=== PATIENT | female | born 1990 | race Caucasian/White ===

== ENCOUNTER → 2016-06-22 | Outpatient (CLI) | payer BC, OTHER ==
--- NOTE | 2016-06-22 13:33 | REP ---
Obstetric sonography: History: Supervision of for anatomy. Findings: Scanning through the gravid uterus demonstrates a viable single intrauterine gestation in a variable lie. motion is observed and heart rate is recorded at 150 beats per minute. A posterior grade 0 placenta is seen without evidence of previa. Amniotic fluid is subjectively normal. Close cervical length is measured transabdominally at 4.6 cm. No extrauterine abnormalities observed. No anomaly is seen. nose and lips are seen but facial profile and left and right ventricular cardiac outflow tract views are not well seen due to position. The following additional anatomic structures are identified and felt to be sonographically unremarkable: cranium, choroid plexus, cavum, cerebellum and posterior fossa, lungs, four-chamber heart, diaphragm, left-sided stomach, abdominal wall cord insertion, three-vessel umbilical cord, kidneys and bladder, spine, upper and lower extremities. Biometry chart: BPD 5.1 cm = 21 weeks 4 days Head circumference 19.0 cm = 21 weeks 2 days Abdominal circumference 16.8 cm = 21 weeks 6 days Femur length 3.5 cm = 21 weeks 0 days Humeral length 3.5 cm = 22 weeks 1 day Cerebellar diameter 2.3 cm = 21 weeks 2 days HC/AC ratio normal 1.13 cephalic index normal 0.75. Impression: Viable single intrauterine gestation at 21 weeks 1 day by today's composite criteria. ISAAC by today's sonography November 01, 2016. Facial profile and left and right ventricular outflow tract views are less than optimally seen. anatomic survey is otherwise complete. Signed by Cas Mathis MD 06/22/2016 03:16 P
== END ==
LOC: M SMT 08:53
PROVIDERS: ATTEND Advanced Practice Midwife
DX: Z34.82 Encounter for supervision of other normal pregnancy, second trimester (principal)

== ENCOUNTER → 2016-07-14 | Outpatient (REF) | payer OTHER | LOC: M LAB REF 15:11 | PROVIDERS: ATTEND Physician Assistant | DX: J06.9 Acute upper respiratory infection, unspecified (principal) ==

== ENCOUNTER → 2016-07-15 | Outpatient (CLI) | payer BC, OTHER ==
--- NOTE | 2016-07-15 10:21 | REP ---
Clinical: Anatomical evaluation. Comparison: 06/22/2016 . Findings: Examination demonstrates a single live intrauterine in cephalic presentation. motion is identified by technologist. Placenta is noted posteriorly and grade zero without evidence for placenta previa or abruption. Amniotic fluid volume is normal. Cervix measures 4.7 cm in length and appears closed. No evidence for nuchal cord. Gestational age by current measurements 24 weeks 4 days with ISAAC 10/31/2016 . FHR equals 157 beats per minute. Estimated weight 746 grams ( 58th percentile). Anatomical assessment demonstrates normal structures including cranium, choroid plexus, cavum, cerebellum/posterior fossa, facial features, lungs, four-chamber heart/ventricular outflow tracts, diaphragm, stomach, three-vessel cord, kidneys/bladder, spine, and extremities. Impression: Single live intrauterine in cephalic presentation demonstrating appropriate growth. In conjunction with prior examination anatomical assessment is complete and normal. Signed by Andrae Cabrera MD 07/15/2016 10:13 A
== END ==
LOC: M SMT 08:57
PROVIDERS: ATTEND Advanced Practice Midwife
DX: Z34.02 Encounter for supervision of normal first pregnancy, second trimester (principal)

== ENCOUNTER → 2016-07-30 | Outpatient (CLI) | payer BC, OTHER ==
[2016-07-30 13:05] LABS: MEAN CORPUSCULAR HEMOGLOBIN 34.3 pg (27.0-33.0); MEAN CORPUSCULAR HGB CONC 34.8 g/dl (32.0-36.5); MEAN CORPUSCULAR VOLUME 98.3 fl (80.0-96.0); RED CELL DISTRIBUTION WIDTH 13.1 % (11.5-14.5); WHITE BLOOD COUNT 11.2 K/mm3 (4.0-10.0)
== END ==
LOC: M LAB 11:28
PROVIDERS: ATTEND Obstetrics & Gynecology
DX: Z34.82 Encounter for supervision of other normal pregnancy, second trimester (principal)

== ENCOUNTER → 2016-10-07 | Outpatient (CLI) | payer BC, OTHER | LOC: M SMT 10:02 | PROVIDERS: ATTEND Advanced Practice Midwife | DX: Z34.03 Encounter for supervision of normal first pregnancy, third trimester (principal) ==

== ENCOUNTER 2016-11-07 12:40 | Inpatient (IN) | payer BC, OTHER ==
[2016-11-07] VITALS (33 sets, daily range): BP systolic 87–150; BP diastolic 50–92
[~2016-11-07] VITALS: Ht 157.5 cm; Wt 72.0 kg
[2016-11-07] MEDS ORDERED: PRENTAB9 PO (12:53)
[2016-11-07 15:22] LABS: MEAN CORPUSCULAR HEMOGLOBIN 34.4 pg (27.0-33.0); MEAN CORPUSCULAR HGB CONC 35.3 g/dl (32.0-36.5); MEAN CORPUSCULAR VOLUME 97.4 fl (80.0-96.0); RED CELL DISTRIBUTION WIDTH 13.3 % (11.5-14.5); WHITE BLOOD COUNT 14.4 K/mm3 (4.0-10.0)
[2016-11-07] MEDS ORDERED: FENTANYL 2MCG/ML ROPIVACAINE 0.2% IN 0.9% NACL 200ML IVBAG As Ordered ONE (18:29)
[2016-11-07] MEDS ORDERED: OXYTOCIN DRIP 30 UNITS in APPROPRIATE DILUENT 1 EA IV SCH (18:45)
[2016-11-07] MEDS ORDERED: LR 1,000 ML IV SCH (19:00)
[2016-11-07] MEDS ORDERED: NALOXONE INJ 0.4 MG/1 ML VIAL (J2310) IV PRN (19:45)
[2016-11-07] MEDS ORDERED: EPIDURAL COMMENT XX SCH (19:45)
[2016-11-07] MEDS ORDERED: LACTATED RINGER'S 1000 ML IV PRN (19:45)
[2016-11-07] MEDS ORDERED: REFRIGERATOR IV KEYS XX PRN (19:45)
[2016-11-07] MEDS ORDERED: FENTANYL/ROPIVACAINE/NACL BAG 200 ML EPIDURAL SCH (19:45)
[2016-11-07] MEDS ORDERED: EPIDURAL/PCA KEYS XX PRN (19:45)
[2016-11-07] MEDS ORDERED: ONDANSETRON 4MG/2ML VIAL (J2405) IV PRN (19:45)
[2016-11-07] MEDS ORDERED: ePHEDrine SULFATE 25 MG/5 ML(5MG/ML) SYRINGE IV PRN (19:45)
[2016-11-07] MEDS ORDERED: diphenhydrAMINE INJ 50MG/ML VIAL (J1200) IV PRN (19:45)
[2016-11-08] VITALS (19 sets, daily range): BP systolic 95–122; BP diastolic 50–70
[2016-11-08] MEDS ORDERED: ceFAZolin 2 GM/D5W 50 ML IV BAG (J0690) As Ordered ONE (07:52)
[2016-11-08] MEDS ORDERED: BICITRA 30ML SOLN UDC As Ordered ONE (07:53)
[2016-11-08] MEDS ORDERED: BICITRA 30ML SOLN UDC PO ONE (08:00)
[2016-11-08] MEDS ORDERED: OXYTOCIN INJ 10 UNITS/ML VIAL (J2590) As Ordered ONE (08:10)
[2016-11-08] MEDS ORDERED: LIDOCAINE 2% W/EPIN INJ 20ML **PRES FREE As Ordered ONE (08:28)
[2016-11-08] MEDS ORDERED: SODIUM BICARBONATE 8.4% INJ 50MEQ 50 ML VIAL As Ordered ONE (08:29)
[2016-11-08] MEDS ORDERED: ONDANSETRON 4MG/2ML VIAL (J2405) As Ordered ONE (08:32)
[2016-11-08] MEDS ORDERED: KETOROLAC 60 MG/2 ML VIAL (J1885) As Ordered ONE (08:32)
[2016-11-08] MEDS ORDERED: MORPHINE PRES-FREE INJ 10 MG/10 ML VIAL (J2274) As Ordered ONE (08:54)
[2016-11-08] MEDS ORDERED: NALBUPHINE HCL 10 MG/ML AMP (J2300) IV PRN (08:59)
[2016-11-08] MEDS ORDERED: METOCLOPRAMIDE INJ 10MG/2ML VIAL (J2765) IV PRN ×2 (08:59→09:45)
[2016-11-08] MEDS ORDERED: ONDANSETRON 4MG/2ML VIAL (J2405) IV PRN ×3 (08:59→09:45)
[2016-11-08] MEDS ORDERED: NALOXONE INJ 0.4 MG/1 ML VIAL (J2310) IV PRN ×2 (08:59)
[2016-11-08] MEDS ORDERED: LR 1,000 ML IV SCH ×2 (09:33→09:45)
[2016-11-08] MEDS ORDERED: RHOGAM 300 MCG (1500 IU) INJ (J2790) IM SCH (09:45)
[2016-11-08] MEDS ORDERED: fentaNYL 100 MCG/2 ML INJECTION (J3010) IV PRN (09:45)
[2016-11-08] MEDS ORDERED: DOCUSATE SODIUM 100 MG CAP PO PRN (09:45)
[2016-11-08] MEDS ORDERED: MEPERIDINE INJ 25 MG/ML VIAL (J2175) IV PRN (09:45)
[2016-11-08] MEDS ORDERED: PERCOCET 5MG/325MG TAB PO PRN (09:45)
[2016-11-08] MEDS ORDERED: OXYTOCIN DRIP 30 UNITS in APPROPRIATE DILUENT 1 EA IV ONE (09:45)
[2016-11-08] MEDS ORDERED: MEASLES,MUMPS,RUBELLA VACCINE INJ (MMR-II) (90707) SC SCH (09:45)
[2016-11-08] MEDS: PRENATAL VITAMIN TAB PO SCH (14:10)
[2016-11-08] MEDS: KETOROLAC 30 MG/ML VIAL (J1885) IV SCH ×2 (15:01→20:50)
[2016-11-09 02:53] VITALS: BP 103/53
[2016-11-09] MEDS: KETOROLAC 30 MG/ML VIAL (J1885) IV SCH (03:03)
[2016-11-09 06:00] VITALS: BP 95/51
[2016-11-09 07:47] LABS: MEAN CORPUSCULAR HEMOGLOBIN 34.9 pg (27.0-33.0); MEAN CORPUSCULAR HGB CONC 34.9 g/dl (32.0-36.5); MEAN CORPUSCULAR VOLUME 99.8 fl (80.0-96.0); RED CELL DISTRIBUTION WIDTH 13.4 % (11.5-14.5); WHITE BLOOD COUNT 16.1 K/mm3 (4.0-10.0)
[2016-11-09] MEDS: PRENATAL VITAMIN TAB PO SCH (09:00)
[2016-11-09] MEDS: IBUPROFEN 800 MG TAB PO SCH ×2 (09:00→16:14)
[2016-11-09] MEDS: PERCOCET 5MG/325MG TAB PO PRN ×4 (09:40→21:09)
[2016-11-09 10:00] VITALS: BP 110/61
[2016-11-09 14:00] VITALS: BP 109/62
[2016-11-09 17:55] VITALS: BP 108/61
[2016-11-09 22:24] VITALS: BP 110/59
[2016-11-10] MEDS: PERCOCET 5MG/325MG TAB PO PRN ×3 (01:09→10:54)
[2016-11-10] MEDS: IBUPROFEN 800 MG TAB PO SCH ×2 (01:10→08:35)
[2016-11-10 06:27] VITALS: BP 114/66
[2016-11-10] MEDS ORDERED: IBUP80TA PO (07:15)
[2016-11-10] MEDS ORDERED: PERCOCET PO (07:15)
[2016-11-10] MEDS ORDERED: MOM 30ML SUSPENSION UDC PO ONE (07:30)
[2016-11-10] MEDS: PRENATAL VITAMIN TAB PO SCH (08:35)
== END 2016-11-10 12:15 | disposition home or self-care (01) | DRG 540 ==
LOC: M LDO 12:40 → M LDI 13:27 → M OBS 11-08 12:59
PROVIDERS: ADMIT Specialist; ATTEND Specialist
PROC: 10D00Z1 Extraction of Products of Conception, Low, Open Approach (ICD-10-PCS; principal; 2016-11-08 08:40)
DX: O48.0 Post-term pregnancy (principal); E73.9 Lactose intolerance, unspecified; Z37.0 Single live birth; Z3A.40 40 weeks gestation of pregnancy; O32.4XX0 Maternal care for high head at term, not applicable or unspecified; O99.284 Endocrine, nutritional and metabolic diseases complicating childbirth

== ENCOUNTER → 2017-05-04 | Outpatient (REF) | payer OTHER ==
[~2017-05-04] MED LIST: IBUP80TA PO; PERCOCET PO; PRENTAB9 PO
== END ==
LOC: M LAB REF 16:35
PROVIDERS: ATTEND Physician Assistant
DX: J02.9 Acute pharyngitis, unspecified (principal)

== ENCOUNTER → 2017-06-21 | Outpatient (REF) | payer OTHER | LOC: M LAB REF 17:26 | DX: R30.0 Dysuria (principal) ==

== ENCOUNTER → 2017-10-22 | Outpatient (REF) | payer OTHER | LOC: M LAB REF 15:09 | DX: Z12.4 Encounter for screening for malignant neoplasm of cervix (principal) ==

== ENCOUNTER → 2018-03-22 | Outpatient (REF) | payer OTHER ==
[2018-03-22 20:02] LABS: FREE T4 1.14 NG/DL (0.76-1.46)
[2018-03-22 20:04] LABS: TOTAL 25(OH) VITAMIN D 32.5 NG/ML (30.0-100.0)
== END ==
LOC: M SFHCADAM 15:08
DX: R51 Headache (principal); E55.9 Vitamin D deficiency, unspecified

== ENCOUNTER → 2018-03-29 | Outpatient (CLI) | payer BC, OTHER | LOC: M RAD 07:21 | DX: R19.06 Epigastric swelling, mass or lump (principal) | CPT/HCPCS: 76705 ==

== ENCOUNTER → 2018-06-16 | Outpatient (REF) | payer OTHER | LOC: M LAB REF 17:28 | PROVIDERS: ATTEND Surgery | DX: D17.1 Benign lipomatous neoplasm of skin and subcutaneous tissue of trunk (principal) ==

== ENCOUNTER → 2018-07-14 | Outpatient (CLI) | payer OTHER | LOC: M WUC 11:48 | PROVIDERS: ATTEND Internal Medicine Gastroenterology | DX: R11.10 Vomiting, unspecified (principal); Z53.8 Procedure and treatment not carried out for other reasons ==

== ENCOUNTER → 2018-07-19 | Outpatient (CLI) | payer BC, OTHER ==
[2018-07-19 09:15] LABS: BASO # 0.1 10^3/uL (0.0-0.2); BASO % 0.9 % (0.0-1.0); EOS # 0.1 10^3/uL (0.0-0.50); EOS % 1.3 % (0.0-3.0); HEMATOCRIT 41.9 % (36.0-47.0); HEMOGLOBIN 14.2 g/dl (12.0-15.5); LYMPH # 1.5 10^3/uL (1.5-6.5); LYMPH % 27.1 % (24.0-44.0); MEAN CORPUSCULAR HEMOGLOBIN 32.6 pg (27.0-33.0); MEAN CORPUSCULAR HGB CONC 33.9 g/dl (32.0-36.5); MEAN CORPUSCULAR VOLUME 96.3 fl (80.0-96.0); MONO # 0.4 10^3/uL (0.0-0.8); NEUTROPHILS # 3.6 10^3/uL (1.8-7.7); NEUTROPHILS % 63.3 % (36.0-66.0); PLATELET COUNT, AUTOMATED 213 10^3/uL (150-450); RED BLOOD COUNT 4.35 10^6/uL (4.00-5.40); WHITE BLOOD COUNT 5.6 10^3/uL (4.0-10.0)
[2018-07-19 09:35] LABS: IRON (FE) 53 UG/DL (50-170); PERCENT SATURATION 15.5 % (13.2-45.0); TOTAL IRON BINDING CAPACITY 342 UG/DL (250-450)
[2018-07-19 09:48] LABS: H PYLORI QUALITATIVE IgG NEGATIVE (NEGATIVE)
[2018-07-21 08:33] LABS: IGASUB3 33.4 mg/dL (13.4-97.9); IgA SERUM (part of Subclasses) 155 mg/dL (87-352); TISSUE TRANSGLUTAMINASE IgA <2 U/mL (0-3)
== END ==
LOC: M LAB 08:14
PROVIDERS: ATTEND Nurse Practitioner Acute Care
DX: R11.10 Vomiting, unspecified (principal)

== ENCOUNTER → 2018-12-24 | Outpatient (REF) | payer OTHER, BC | LOC: M LAB REF 09:09 | PROVIDERS: ATTEND Physician Assistant | DX: N39.0 Urinary tract infection, site not specified (principal) ==

== ENCOUNTER → 2019-02-23 | Outpatient (REF) | payer OTHER, BC | LOC: M LAB REF 16:05 | PROVIDERS: ATTEND Physician Assistant | DX: N39.0 Urinary tract infection, site not specified (principal) ==

== ENCOUNTER → 2019-09-15 | Outpatient (REF) | payer OTHER | LOC: M WUC 12:06 | PROVIDERS: ATTEND Nurse Practitioner Family | DX: R30.0 Dysuria (principal) ==

== ENCOUNTER → 2019-10-05 | Outpatient (REF) | payer OTHER ==
[2019-10-05 22:53] LABS: CHLAMYDIA DNA AMPLIFICATION NEGATIVE (NEGATIVE); GC DNA AMPLIFICATION NEGATIVE (NEGATIVE)
== END ==
LOC: M SFHCWAGY 17:14
PROVIDERS: ATTEND Advanced Practice Midwife
DX: Z11.3 Encounter for screening for infections with a predominantly sexual mode of transmission (principal)

== ENCOUNTER → 2020-02-02 | Outpatient (CLI) | payer BC ==
--- NOTE | 2020-02-23 14:58 | REP ---
COMPLETE OBSTETRICAL ULTRASOUND CLINICAL: Anatomical assessment. TECHNIQUE: Transabdominal obstetrical ultrasound with color Doppler evaluation. FINDINGS: Ultrasound examination demonstrates a single live intrauterine in cephalic presentation. motion was identified by the technologist. Placenta is noted posteriorly and grade 1 without evidence for placenta previa or abruption. Amniotic fluid volume is normal. Cervix measures 4 cm in length and appears closed. No evidence for nuchal cord. Gestational age by last menstrual period (LMP) 19 weeks 0 days with estimated date of delivery 06/28/2020. Gestational age by current measurements 18 weeks 5 days with estimated date of delivery 06/30/2020. heart rate (FHR) 147 beats per minute. MEASUREMENTS: BPD 4.3 cm 18 weeks 6 days HC 15.7 cm 18 weeks 4 days AC 13.4 cm 18 weeks 6 days FL 2.7 cm 18 weeks 3 days HL 2.7 cm 18 weeks 6 days HC/AC ratio 1.17 Estimated weight 250 grams (27th percentile). Anatomical assessment demonstrates normal cranium, choroid plexus, cerebellum/posterior fossa, facial features, four chamber heart/ventricular outflow tracts, diaphragm, stomach, kidneys/bladder, spine, extremities, three- vessel cord/cord insertion. IMPRESSION: Single live intrauterine in cephalic presentation demonstrating appropriate estimated weight and growth. Anatomical assessment is complete and normal. No gross abnormalities are identified. MTDD
== END ==
LOC: M WHC 15:26
PROVIDERS: ATTEND Advanced Practice Midwife
DX: Z36.89 Encounter for other specified antenatal screening (principal); Z3A.18 18 weeks gestation of pregnancy

== ENCOUNTER → 2020-03-26 | Outpatient (REF) | payer OTHER ==
[2020-03-26 18:13] LABS: HEMOGLOBIN 13.2 g/dl (12.0-15.5); MEAN CORPUSCULAR HEMOGLOBIN 32.8 pg (27.0-33.0); MEAN CORPUSCULAR HGB CONC 32.2 g/dl (32.0-36.5); MEAN CORPUSCULAR VOLUME 101.7 fl (80.0-96.0); PLATELET COUNT, AUTOMATED 213 10^3/uL (150-450); RED BLOOD COUNT 4.03 10^6/uL (4.00-5.40); WHITE BLOOD COUNT 10.1 10^3/uL (4.0-10.0)
== END ==
LOC: M PLALAB 11:59
PROVIDERS: ATTEND Advanced Practice Midwife
DX: Z34.90 Encounter for supervision of normal pregnancy, unspecified, unspecified trimester (principal); Z3A.00 Weeks of gestation of pregnancy not specified

== ENCOUNTER → 2020-05-29 | Outpatient (REF) | payer OTHER | LOC: M SFHCWAGY 13:01 | PROVIDERS: ATTEND Specialist | DX: Z34.83 Encounter for supervision of other normal pregnancy, third trimester (principal); Z3A.35 35 weeks gestation of pregnancy ==

== ENCOUNTER → 2020-06-16 | Outpatient (CLI) | payer BC, OTHER ==
[~2020-06-16] MED LIST changes: +OXYC1TAB23 PO
== END ==
LOC: M LABSMTC 08:29
PROVIDERS: ATTEND Anesthesiology
DX: Z01.812 Encounter for preprocedural laboratory examination (principal); Z20.822 Contact with and (suspected) exposure to COVID-19

== ENCOUNTER 2020-06-21 05:26 | Inpatient (IN) | payer BC, OTHER ==
[2020-06-21] VITALS (9 sets, daily range): BP systolic 92–133; BP diastolic 51–75
[~2020-06-21] VITALS: Ht 157.5 cm; Wt 75.9 kg
[~2020-06-21 05:26] MED LIST changes: -OXYC1TAB23 PO
[2020-06-21] MEDS ORDERED: LR 1,000 ML IV SCH ×3 (06:15→10:00)
[2020-06-21] MEDS ORDERED: BICITRA 30ML SOLN UDC PO ONE (06:15)
[2020-06-21] MEDS ORDERED: ceFAZolin SOD 2 GM in IV 1 EA IV ONE (06:15)
[2020-06-21] MEDS ORDERED: LR 800 ML IV ONE (06:15)
[2020-06-21 06:27] LABS: HEMATOCRIT 40.7 % (36.0-47.0); HEMOGLOBIN 13.6 g/dl (12.0-15.5); MEAN CORPUSCULAR HEMOGLOBIN 33.2 pg (27.0-33.0); MEAN CORPUSCULAR HGB CONC 33.4 g/dl (32.0-36.5); MEAN CORPUSCULAR VOLUME 99.3 fl (80.0-96.0); PLATELET COUNT, AUTOMATED 175 10^3/uL (150-450); WHITE BLOOD COUNT 9.9 10^3/uL (4.0-10.0)
[2020-06-21] MEDS ORDERED: dexameTHASONE 4 MG/ML 1ML VIAL (J1100 PER 1MG) As Ordered ONE (07:12)
[2020-06-21] MEDS ORDERED: OXYTOCIN INJ 10 UNITS/ML VIAL (J2590) As Ordered ONE (07:12)
[2020-06-21] MEDS ORDERED: ONDANSETRON 4MG/2ML VIAL As Ordered ONE ×2 (07:12→09:48)
[2020-06-21] MEDS ORDERED: KETOROLAC 60MG 2ML VIAL As Ordered ONE (07:12)
[2020-06-21] MEDS ORDERED: MORPHINE PRES-FREE INJ 10 MG/10 ML VIAL (J2274) As Ordered ONE (07:13)
[2020-06-21] MEDS ORDERED: fentaNYL 100 MCG/2 ML INJECTION (J3010) As Ordered ONE (07:13)
[2020-06-21] MEDS ORDERED: ePHEDrine SULFATE 25 MG/5 ML(5MG/ML) SYRINGE As Ordered ONE ×2 (07:52→07:53)
[2020-06-21] MEDS ORDERED: OXYTOCIN DRIP 30 UNITS in IV 1 EA IV SCH (08:35)
[2020-06-21] MEDS ORDERED: MEASLES,MUMPS,RUBELLA VACCINE INJ (MMR-II) (90707) SC SCH (08:45)
[2020-06-21] MEDS ORDERED: ONDANSETRON 4MG/2ML VIAL IV PRN ×3 (08:45→10:00)
[2020-06-21] MEDS ORDERED: RHOGAM 300 MCG (1500 IU) INJ (J2790) IM SCH (08:45)
[2020-06-21] MEDS ORDERED: PERCOCET 5MG/325MG TAB PO PRN (08:45)
--- NOTE | 2020-06-21 08:48 | ROOPDOC ---
[facility] Report Of Operation Report of Operation DATE OF PROCEDURE: 06/21/20 Report of operation Preoperative diagnosis: 39 0/7 weeks, prior , undesired fertility Postoperative diagnosis: same Procedure: Repeat low transverse section and bilateral tubal ligation. Surgeon: Gertrudis Leyva M.D. Asst.: Jojo Alexander CNM EBL: 600 ml. Urine output: 75 mL's. Findings: 8 lbs. 4 oz. male , Score 8 and 8, normal uterus, fallopian tubes, ovaries. Operative summary: Patient taken to the operating room where spinal anesthesia was induced. She was prepped draped in a sterile fashion in the supine position. A Cedillo catheter was placed. A Pfannenstiel skin incision was made with scalpel. Fascia was incised and extended bilaterally. The peritoneal cavity was entered. A Mobius retractor was placed. A bladder flap was created. A curvilinear incision was made in lower uterine segment until Clear fluid was noted. The incision was extended manually. The infant was delivered from the vertex position without difficulty. Cord was double clamped and cut. The infant was handed to the awaiting nurses. . The placenta was expressed. Uterus was closed with O-Vicryl in a running locked fashion. A second imbricating layer of Vicryl was placed. Attention was turned to the fallopian tubes. A Blackstone clamp was used to grasp the fallopian tubes at the midportion.. A window was created in the broad ligament free tie of 2-0 chromic was placed around the segment of tube on either side of the clamp. A Segment of tube was excised bilaterally and sent to pathology. Peritoneum was closed with 2-0 Vicryl a running fashion. Fascia was closed with 0 Vicryl in running fashion. Skin was closed 4-0 Monocryl subcuticular sutures. Sponge, instrument and needle counts were correct. Jojo Alexander CNM, assisted with all aspects of the procedure. She helped each la martha of the incision and deliver the fetus. GERTRUDIS LEYVA MD Jun 21, 2020 08:48
[2020-06-21] MEDS: PRENATAL VITAMINS CHEWABLE TABLET PO SCH (09:00)
[2020-06-21] MEDS ORDERED: OXYTOCIN 30 UNITS IN 0.9% NaCl 500ML IV BAG (J2590) As Ordered ONE (09:05)
[2020-06-21] MEDS ORDERED: OXYC1TAB23 PO (09:44)
[2020-06-21] MEDS ORDERED: IBUP80TA PO (09:45)
[2020-06-21] MEDS ORDERED: fentaNYL 100 MCG/2 ML INJECTION (J3010) IV PRN (10:00)
[2020-06-21] MEDS ORDERED: NALBUPHINE HCL 10 MG/ML AMP (J2300) IV PRN ×2 (10:00)
[2020-06-21] MEDS ORDERED: diphenhydrAMINE 50MG/ML VIAL (J1200) IV PRN (10:00)
[2020-06-21] MEDS ORDERED: NALOXONE INJ 0.4MG/1ML VIAL (J2310 PER 1MG) IV PRN ×2 (10:00)
[2020-06-21] MEDS ORDERED: METOCLOPRAMIDE INJ 10MG/2ML VIAL (J2765 PER 1) IV PRN (10:00)
[2020-06-21] MEDS ORDERED: PROMETHAZINE INJ 25 MG/ML VIAL (J2550) IV PRN (10:45)
[2020-06-21] MEDS ORDERED: METOCLOPRAMIDE INJ 10MG/2ML VIAL (J2765 PER 1) IV ONE (10:45)
[2020-06-21] MEDS: KETOROLAC 30 MG/ML 1ML VIAL IV SCH ×2 (13:43→20:04)
[2020-06-21] MEDS: DOCUSATE SODIUM 100MG CAPSULE PO PRN (20:14)
[2020-06-22 02:00] VITALS: BP 117/59
[2020-06-22] MEDS: KETOROLAC 30 MG/ML 1ML VIAL IV SCH (02:15)
[2020-06-22 06:00] VITALS: BP 92/48
[2020-06-22 07:18] LABS: HEMATOCRIT 37.6 % (36.0-47.0); HEMOGLOBIN 12.4 g/dl (12.0-15.5); MEAN CORPUSCULAR HEMOGLOBIN 33.9 pg (27.0-33.0); MEAN CORPUSCULAR VOLUME 102.7 fl (80.0-96.0); PLATELET COUNT, AUTOMATED 171 10^3/uL (150-450); RED BLOOD COUNT 3.66 10^6/uL (4.00-5.40)
--- NOTE | 2020-06-22 07:33 | IPNPDOC ---
Text Note Date of Service The patient was seen on 06/22/20. NOTE PO #1 Feels well. Adequate pain management. Tolerating diet. Due to void, lizarraga was reinserted overnight and removed this am 0600. VSS, afebrile, normotensive Breasts soft, nipples intact Fundus firm, NT Dressing intact Lochia rubra scant without odor Legs negative. PO #1, repeat Routine care. Encourage frequent voiding attempts and OOB activity Consider discharge in am VS,Fishbone, I+O VS, Fishbone, I+O Laboratory Tests 06/22/20 06:57 Vital Signs Date Time Temp Pulse Resp B/P (MAP) Pulse Ox O2 Delivery O2 Flow Rate FiO2 06/22/20 06:00 97.9 78 16 92/48 (63) 98 Room Air I&O- Last 24 Hours up to 6 AM 06/22/20 06:00 Intake Total 2417 ml Output Total 3875 ml Balance -1458 ml Calista Boss CNM Jun 22, 2020 07:33
[2020-06-22] MEDS: PRENATAL VITAMINS CHEWABLE TABLET PO SCH (09:00)
[2020-06-22] MEDS: IBUPROFEN 800 MG TAB PO SCH ×2 (09:02→17:48)
[2020-06-22 10:00] VITALS: BP 116/62
[2020-06-22] MEDS: PERCOCET 5MG/325MG TAB PO PRN ×2 (13:00→22:03)
[2020-06-22 14:00] VITALS: BP 104/67
[2020-06-22 18:00] VITALS: BP 123/73
[2020-06-22] MEDS: DOCUSATE SODIUM 100MG CAPSULE PO PRN (20:47)
[2020-06-22 22:00] VITALS: BP 108/57
[2020-06-23 02:00] VITALS: BP 114/67
[2020-06-23] MEDS: IBUPROFEN 800 MG TAB PO SCH ×2 (02:08→09:48)
[2020-06-23] MEDS: PERCOCET 5MG/325MG TAB PO PRN ×2 (05:24→09:03)
[2020-06-23 06:00] VITALS: BP 110/64
[2020-06-23] MEDS: PRENATAL VITAMINS CHEWABLE TABLET PO SCH (07:39)
--- NOTE | 2020-06-23 08:15 | OBDS ---
[facility] Obstetrical Discharge Sum. Obstetrical Discharge Summary Date: Jun 23, 2020 : 2 Term: 2 Pre-term: 0 Abortions: 0 Livin Rh: Negative Rubella: Immune Anesthesia: Regional Anesthesia A/P, Post Course List any complications Admission diagnosis: Term for elective repeat c/s. Discharge diagnosis: Term for elective repeat c/s Condition at Discharge: [Stable] Discharge Instructions: [See form] Activity: [As tolerated] Diet: [Regular] Medications: [See list] Follow-up: [2 weeks] Other: Yash Miller DO Jun 23, 2020 08:15
== END 2020-06-23 10:40 | disposition home or self-care (01) | DRG 540 ==
LOC: M LDI 05:26 → M OBS 10:19
PROVIDERS: ADMIT Specialist; ATTEND Specialist
PROC: 0UB70ZZ Excision of Bilateral Fallopian Tubes, Open Approach (ICD-10-PCS; 2020-06-21)
PROC: 10D00Z1 Extraction of Products of Conception, Low, Open Approach (ICD-10-PCS; principal; 2020-06-21 07:30)
DX: O34.211 Maternal care for low transverse scar from previous cesarean delivery (principal); Z3A.39 39 weeks gestation of pregnancy; Z37.0 Single live birth; Z30.2 Encounter for sterilization

== ENCOUNTER → 2020-12-17 | Outpatient (CLI) | payer BC, OTHER ==
[~2020-12-17] MED LIST changes: +OXYC1TAB23 PO
[2020-12-17 15:44] LABS: HEMATOCRIT 41.1 % (36.0-47.0); MEAN CORPUSCULAR HEMOGLOBIN 32.6 pg (27.0-33.0); MEAN CORPUSCULAR HGB CONC 34.1 g/dl (32.0-36.5); MEAN CORPUSCULAR VOLUME 95.6 fl (80.0-96.0); PLATELET COUNT, AUTOMATED 244 10^3/uL (150-450); WHITE BLOOD COUNT 6.6 10^3/uL (4.0-10.0)
[2020-12-17 18:21] LABS: HCG, SERUM QUALITATIVE NEGATIVE (NEGATIVE)
[2020-12-17 18:29] LABS: FREE T4 0.99 NG/DL (0.76-1.46)
== END ==
LOC: M PLALAB 13:55
PROVIDERS: ATTEND Advanced Practice Midwife
DX: N94.6 Dysmenorrhea, unspecified (principal)

== ENCOUNTER → 2022-01-12 | Outpatient (REF) | payer OTHER ==
[2022-01-12 16:13] LABS: BASO # 0.1 10^3/uL (0.0-0.2); BASO % 0.7 % (0.0-1.0); EOS # 0.1 10^3/uL (0.0-0.5); EOS % 0.9 % (0.0-3.0); HEMATOCRIT 39.5 % (36.0-47.0); HEMOGLOBIN 13.5 g/dl (12.0-15.5); LYMPH # 2.4 10^3/uL (1.5-5.0); LYMPH % 27.1 % (24.0-44.0); MEAN CORPUSCULAR HEMOGLOBIN 32.8 pg (27.0-33.0); MEAN CORPUSCULAR HGB CONC 34.2 g/dl (32.0-36.5); MEAN CORPUSCULAR VOLUME 96.1 fl (80.0-96.0); MONO # 0.5 10^3/uL (0.0-0.8); MONO % 5.2 % (2.0-8.0); NEUTROPHILS # 5.8 10^3/uL (1.5-8.5); PLATELET COUNT, AUTOMATED 233 10^3/uL (150-450); RED BLOOD COUNT 4.11 10^6/uL (4.00-5.40); WHITE BLOOD COUNT 8.8 10^3/uL (4.0-10.0)
[2022-01-12 17:17] LABS: ALBUMIN 4.3 GM/DL (3.2-5.2); ALT/SGPT 16 U/L (12-78); BILIRUBIN,TOTAL 0.3 MG/DL (0.2-1.0); BLOOD UREA NITROGEN 11 MG/DL (7-18); CALCIUM LEVEL 8.8 MG/DL (8.5-10.1); CARBON DIOXIDE LEVEL 28 MEQ/L (21-32); CHLORIDE LEVEL 105 MEQ/L (98-107); CHOLESTEROL LEVEL 153 MG/DL (<200); CHOLESTEROL RISK RATIO 2.318 (<5); CREATININE FOR GFR 0.82 MG/DL (0.55-1.30); FREE T4 0.87 NG/DL (0.76-1.46); GLOMERULAR FILTRATION RATE > 60.0 (>60); GLUCOSE, FASTING 89 MG/DL (70-100); HDL CHOLESTEROL 66 MG/DL (>40); LDL CHOLESTEROL 54 MG/DL (<100); NON-HDL-C 87 MG/DL; POTASSIUM SERUM 3.9 MEQ/L (3.5-5.1); SODIUM LEVEL 139 MEQ/L (136-145); TOTAL PROTEIN 7.8 GM/DL (6.4-8.2); TRIGLYCERIDES LEVEL 163 MG/DL (<150)
[2022-01-12 18:00] LABS: TOTAL 25(OH) VITAMIN D 43.5 NG/ML (30.0-100.0)
== END ==
LOC: M SFHCADAM 14:16
PROVIDERS: ATTEND Physician Assistant Medical
DX: E55.9 Vitamin D deficiency, unspecified (principal); Z13.0 Encounter for screening for diseases of the blood and blood-forming organs and certain disorders involving the immune mechanism; Z13.220 Encounter for screening for lipoid disorders; R00.2 Palpitations

== ENCOUNTER → 2022-01-12 | Outpatient (CLI) | payer OTHER | LOC: M ADAMS 14:39 | PROVIDERS: ATTEND Physician Assistant Medical | DX: M48.07 Spinal stenosis, lumbosacral region (principal) ==

== ENCOUNTER → 2022-01-23 | Outpatient (CLI) | payer BC, OTHER | LOC: M PLAIMG 07:37 | PROVIDERS: ATTEND Physician Assistant Medical | DX: G43.009 Migraine without aura, not intractable, without status migrainosus (principal) ==

== ENCOUNTER → 2022-08-19 | Outpatient (REF) | payer OTHER | LOC: M WUC 22:24 | PROVIDERS: ATTEND Nurse Practitioner Family | DX: J02.9 Acute pharyngitis, unspecified (principal) ==

== ENCOUNTER → 2023-01-01 | Outpatient (REF) | payer OTHER | LOC: M PLALAB 13:00 | PROVIDERS: ATTEND Nurse Practitioner Family | DX: Z12.4 Encounter for screening for malignant neoplasm of cervix (principal) | CPT/HCPCS: 87624; G0123 ==

== ENCOUNTER → 2023-01-29 | Outpatient (CLI) | payer BC, OTHER | LOC: M PLALAB 11:26 | PROVIDERS: ATTEND Allergy & Immunology Allergy | DX: J31.0 Chronic rhinitis (principal) ==

== ENCOUNTER → 2023-02-17 | Outpatient (CLI) | payer BC, OTHER ==
[2023-02-17 17:37] LABS: BASO % 0.7 % (0.0-1.0); EOS # 0.1 10^3/uL (0.0-0.5); HEMATOCRIT 36.5 % (36.0-47.0); HEMOGLOBIN 12.4 g/dl (12.0-15.5); LYMPH # 1.9 10^3/uL (1.5-5.0); LYMPH % 32.1 % (24.0-44.0); MEAN CORPUSCULAR HEMOGLOBIN 33.2 pg (27.0-33.0); MEAN CORPUSCULAR VOLUME 97.6 fl (80.0-96.0); MONO # 0.5 10^3/uL (0.0-0.8); MONO % 7.6 % (2.0-8.0); NEUTROPHILS # 3.5 10^3/uL (1.5-8.5); NEUTROPHILS % 58.4 % (36.0-66.0); PLATELET COUNT, AUTOMATED 231 10^3/uL (150-450); RED BLOOD COUNT 3.74 10^6/uL (4.00-5.40); WHITE BLOOD COUNT 6.1 10^3/uL (4.0-10.0)
[2023-02-17 17:42] LABS: ERYTHROCYTE SEDIMENTATION RATE 6 mm/hr (0-20)
[2023-02-19 23:09] LABS: ANA (HEP2) Negative (.)
== END ==
LOC: M PLALAB 15:59
PROVIDERS: ATTEND Physician Assistant Medical
DX: L65.9 Nonscarring hair loss, unspecified (principal)

== ENCOUNTER 2023-05-15 21:34 | Emergency (ER) | payer BC, OTHER ==
[~2023-05-15] VITALS: Ht 157.5 cm; Wt 58.2 kg
[~2023-05-15 21:34] MED LIST changes: -ACET-683 PO; -AZO-95TA3 PO; -BACTDSTA; -IBUP-1114 PO
[2023-05-15 21:35] VITALS: BP 120/72; TEMP 97.7; O2SAT 100
[2023-05-15] MEDS ORDERED: IBUP-1114 PO (21:44)
[2023-05-15] MEDS ORDERED: AZO-95TA3 PO (21:44)
[2023-05-15] MEDS ORDERED: BACTDSTA (21:44)
[2023-05-15] MEDS ORDERED: ACET-683 PO (21:44)
== END 2023-05-16 03:14 | disposition left against medical advice (07) ==
LOC: M ED 21:34
DX: Z53.21 Procedure and treatment not carried out due to patient leaving prior to being seen by health care provider (principal)

== ENCOUNTER → 2023-05-15 | Outpatient (REF) | payer OTHER ==
[~2023-05-15] MED LIST changes: +ACET-683 PO; +AZO-95TA3 PO; +BACTDSTA; +IBUP-1114 PO
== END ==
LOC: M LAB REF 18:42
PROVIDERS: ATTEND Registered Nurse
DX: R30.0 Dysuria (principal)

== ENCOUNTER → 2023-11-02 | Outpatient (CLI) | payer BC ==
[~2023-11-02] MED LIST changes: +ACET-683 PO; +AMOX875T; +AZO-95TA3 PO; +BACTDSTA; +D-ME1CAP36 PO; +HYDR-3363; +IBUP-1114 PO; +ZITHTAB PO
== END ==
LOC: M RAD 16:36
PROVIDERS: ATTEND Physician Assistant Medical
DX: J32.9 Chronic sinusitis, unspecified (principal)

== ENCOUNTER 2023-11-03 19:52 | Emergency (ER) | payer BC, OTHER ==
[~2023-11-03] VITALS: Ht 157.5 cm; Wt 55.9 kg
[~2023-11-03 19:52] MED LIST changes: -AMOX875T; -D-ME1CAP36 PO; -HYDR-3363; -ZITHTAB PO
[2023-11-03] MEDS ORDERED: HYDR-3363 (20:00)
[2023-11-03] MEDS ORDERED: AMOX875T (20:00)
[2023-11-03] MEDS ORDERED: D-ME1CAP36 PO (20:00)
[2023-11-04 00:30] LABS: BLOOD UREA NITROGEN 9 MG/DL (9-23); CALCIUM LEVEL 8.5 MG/DL (8.5-10.1); CARBON DIOXIDE LEVEL 27 MMOL/L (20-31); CHLORIDE LEVEL 104 MMOL/L (98-107); CK-MB VALUE MASS < 1.0 NG/ML (<3.6); CREATININE FOR GFR 0.74 MG/DL (0.55-1.30); GLOMERULAR FILTRATION RATE > 60.0 (>60); GLUCOSE, FASTING 85 MG/DL (60-100); POTASSIUM SERUM 3.8 MMOL/L (3.5-5.1); SODIUM LEVEL 139 MMOL/L (136-145)
[2023-11-04 00:31] LABS: CPK CREATINE PHOSPHOKINASE 69 U/L (34-145); MB/CK RELATIVE INDEX 1.44 (< OR =4)
[2023-11-04] MEDS ORDERED: ZITHTAB PO (00:49)
[2023-11-04 00:51] LABS: BASO # 0.1 10^3/uL (0.0-0.2); BASO % 0.6 % (0.0-1.0); EOS # 0.1 10^3/uL (0.0-0.5); EOS % 1.5 % (0.0-3.0); HEMATOCRIT 36.6 % (36.0-47.0); HEMOGLOBIN 12.8 g/dl (12.0-15.5); LYMPH # 2.3 10^3/uL (1.5-5.0); LYMPH % 29.4 % (24.0-44.0); MEAN CORPUSCULAR HEMOGLOBIN 32.7 pg (27.0-33.0); MEAN CORPUSCULAR VOLUME 93.6 fl (80.0-96.0); MONO # 0.6 10^3/uL (0.0-0.8); MONO % 7.1 % (2.0-8.0); NEUTROPHILS # 4.8 10^3/uL (1.5-8.5); NEUTROPHILS % 60.8 % (36.0-66.0); PLATELET COUNT, AUTOMATED 204 10^3/uL (150-450); RED BLOOD COUNT 3.91 10^6/uL (4.00-5.40); WHITE BLOOD COUNT 7.9 10^3/uL (4.0-10.0)
[2023-11-04 00:55] VITALS: BP 134/76; TEMP 98.1; O2SAT 97
== END 2023-11-04 00:57 | disposition home or self-care (01) ==
LOC: M ED 19:52
DX: J06.9 Acute upper respiratory infection, unspecified (principal); R07.9 Chest pain, unspecified; Z79.2 Long term (current) use of antibiotics; Z79.899 Other long term (current) drug therapy

== ENCOUNTER → 2024-03-29 | Outpatient (REF) | payer BC, OTHER ==
[~2024-03-29] MED LIST changes: +AMOX875T; +D-ME1CAP36 PO; +HYDR-3363; +ZITHTAB PO
== END ==
LOC: M LAB REF 18:34 → EEVIPCON 18:34
PROVIDERS: ATTEND Student in an Organized Health Care Education/Training Program
DX: R30.0 Dysuria (principal)

== ENCOUNTER → 2024-07-19 | Outpatient (CLI) | payer BC, OTHER ==
[2024-07-19 18:35] LABS: HEMATOCRIT 37.7 % (36.0-47.0); HEMOGLOBIN 12.7 g/dl (12.0-15.5); MEAN CORPUSCULAR HGB CONC 33.7 g/dl (32.0-36.5); PLATELET COUNT, AUTOMATED 234 10^3/uL (150-450); RED BLOOD COUNT 3.97 10^6/uL (4.00-5.40); WHITE BLOOD COUNT 6.8 10^3/uL (4.0-10.0)
[2024-07-19 19:07] LABS: IRON (FE) 94 UG/DL (50-170); PERCENT SATURATION 23.2 % (13.2-45.0); TOTAL IRON BINDING CAPACITY 406 UG/DL (250-425)
[2024-07-19 19:11] LABS: FOLATE > 24.0 NG/ML (>5.4); VITAMIN B12 LEVEL 759 PG/ML (211-911)
[2024-07-19 19:12] LABS: FERRITIN 6.5 NG/ML (7.3-270.7)
== END ==
LOC: M LAB 17:24
PROVIDERS: ATTEND Physician Assistant
DX: L29.9 Pruritus, unspecified (principal); N92.0 Excessive and frequent menstruation with regular cycle

== ENCOUNTER → 2024-08-31 | Outpatient (REF) | payer BC, OTHER | LOC: M LAB REF 11:40 | PROVIDERS: ATTEND Student in an Organized Health Care Education/Training Program | DX: R30.0 Dysuria (principal) ==

== ENCOUNTER → 2024-12-29 | Outpatient (REF) | payer OTHER, BC | LOC: M LAB REF 11:39 | PROVIDERS: ATTEND Nurse Practitioner Family | DX: R30.0 Dysuria (principal) ==

== ENCOUNTER → 2025-01-19 | Outpatient (REF) | payer OTHER, BC | LOC: M SFHCADAM 12:56 | PROVIDERS: ATTEND Physician Assistant | DX: N39.0 Urinary tract infection, site not specified (principal) ==

== ENCOUNTER → 2025-02-19 | Outpatient (CLI) | payer BC | LOC: M RAD 10:43 | PROVIDERS: ATTEND Physician Assistant | DX: N39.0 Urinary tract infection, site not specified (principal) ==

== ENCOUNTER → 2025-03-20 | Outpatient (REF) | payer BC, OTHER ==
[2025-03-20 19:05] LABS: APPEARANCE, URINE CLEAR (CLEAR); BACTERIA, URINE AUTO NEGATIVE (NEGATIVE); BILIRUBIN, URINE AUTO NEGATIVE (NEGATIVE); BLOOD, URINE BLOOD NEGATIVE (NEGATIVE); GLUCOSE, URINE (UA) AUTO NEGATIVE (NEGATIVE); KETONE, URINE AUTO NEGATIVE (NEGATIVE); LEUKOCYTE ESTERASE, URINE AUTO NEGATIVE (NEGATIVE); NITRITE, URINE AUTO NEGATIVE (NEGATIVE); PROTEIN, URINE AUTO NEGATIVE (NEGATIVE); RBC, URINE AUTO 0 /HPF (0-3); SPECIFIC GRAVITY URINE AUTO 1.012 (1.002-1.035); SQUAMOUS EPITHELIAL CELL UR AU 3 /HPF (0-6); UROBILINOGEN, URINE AUTO 0.2 mg/dL (0.0-2.0); WBC, URINE AUTO 0 /HPF (0-3)
== END ==
LOC: M SMT 17:26
PROVIDERS: ATTEND Nurse Practitioner Family
DX: N39.0 Urinary tract infection, site not specified (principal)